=== PATIENT | male | born 1990 | race Hispanic/Latino ===

== ENCOUNTER 2021-10-18 08:50 | Day surgery (SDC) | payer OTHER ==
[2021-10-15 09:26] VITALS: BP 152/76
[~2021-10-18] VITALS: Ht 188 cm; Wt 126.2 kg
[2021-10-18] VITALS (16 sets, daily range): BP systolic 113–138; BP diastolic 59–77
[~2021-10-18 08:50] MED LIST: ALBU0.63 IH; CEFAZOLIN SODIUM 1 GM VIAL IVP ONE
[2021-10-18] MEDS ORDERED: LACTATED RINGERS 1000ML 1,000 ML IV ONE (09:15)
[2021-10-18] MEDS ORDERED: CEFAZOLIN SODIUM 1 GM VIAL ONE (09:15)
[2021-10-18] MEDS ORDERED: BACITRACIN 28.4 GM OINT TP ONE (09:55)
[2021-10-18] MEDS ORDERED: BUPIVACAINE/PF 0.25% 30ML VIAL IJ ONE (09:55)
[2021-10-18] MEDS ORDERED: MIDAZOLAM HCL 1 MG/ML 2ML VIAL ONE (09:58)
[2021-10-18] MEDS ORDERED: LIDOCAINE PF 100MG/5ML (2%) SYRINGE 5ML ONE (09:58)
[2021-10-18] MEDS ORDERED: PROPOFOL 10 MG/ML 20ML VIAL IV ONE (09:58)
[2021-10-18] MEDS ORDERED: FENTANYL CITRATE PF 50 MCG/1 ML 2ML VIAL ONE ×2 (09:59→10:18)
[2021-10-18] MEDS ORDERED: ONDANSETRON 4MG INJ ONE (11:01)
== END 2021-10-18 12:45 | disposition home or self-care (01) ==
LOC: DAH 08:50
PROVIDERS: ATTEND Urology
DX: N47.1 Phimosis (principal); Z20.822 Contact with and (suspected) exposure to COVID-19; J45.909 Unspecified asthma, uncomplicated; E11.9 Type 2 diabetes mellitus without complications; Z98.890 Other specified postprocedural states
CPT/HCPCS: 54161; 87635; A4213; A4215; A4221; A4222; A4223; A4510; A4600; A4663; A6260; A6402; A6453; C9803; J0690; J2001; J2250; J2405; J2704; J3010 ×2; J3490; J7120